=== PATIENT | female | born 1985 | race Caucasian/White ===

== ENCOUNTER 2018-11-01 16:26 | Emergency (ER) | payer OTHER ==
[~2018-11-01] VITALS: Ht 165.1 cm; Wt 72.7 kg
[2018-11-01] MEDS ORDERED: ALBUTEROL SULFATE 5 MG/ML 20 ML NEB SOLN [BULK] NEB ONE (16:36)
[2018-11-01] MEDS ORDERED: IPRATROPIUM BROMIDE 0.5 MG/2.5 ML NEB SOLUTION NEB ONE ×2 (16:45)
[2018-11-01] MEDS ORDERED: DEXAMETHASONE SOD PHOS 4 MG/ML 5 ML VIAL IM ONE ×2 (16:45→17:15)
[2018-11-01] MEDS ORDERED: ALBUTEROL SULFATE 2.5 MG/0.5 ML NEB SOLUTION NEB ONE (16:45)
[2018-11-01 20:20] VITALS: BP 120/70
== END 2018-11-01 20:49 | disposition home or self-care (01) ==
LOC: EMS 16:27
DX: J45.909 Unspecified asthma, uncomplicated (principal)
CPT/HCPCS: 93005; 94644; 96372; 99285; J1100